=== PATIENT | male | born 1985 | race Two or more races ===

== ENCOUNTER 2024-04-04 06:25 | Emergency (ER) | payer MEDICAID, OTHER ==
[~2024-04-04] VITALS: Ht 180.3 cm; Wt 94.7 kg
[2024-04-04 07:43] VITALS: BP 145/64; PULSE 85; RESP 18; TEMP 98.2; O2SAT 98
[2024-04-04] MEDS ORDERED: CLIN1AER5 EX (07:50)
[2024-04-04] MEDS ORDERED: DOXY-286 PO (07:50)
[2024-04-04] MEDS ORDERED: BENZ5GEL EX (07:50)
== END 2024-04-04 07:56 | disposition home or self-care (01) ==
LOC: ER 06:25
DX: L70.9 Acne, unspecified (principal); Z79.899 Other long term (current) drug therapy